=== PATIENT | male | born 1980 | race African-American/Black ===

== ENCOUNTER 2021-03-02 07:35 | Emergency (ER) | payer SELFPAY ==
[~2021-03-02] VITALS: Ht 177.8 cm; Wt 68.0 kg
[2021-03-02] MEDS ORDERED: OLANZAPINE 5MG TABLET ODT PO ONE (08:00)
[2021-03-02 08:28] LABS: BASOPHILS % 0.5 % (0.0-2.0); EOSINOPHILS % 0.2 % (0.0-5.0); HEMATOCRIT. 42.8 % (42.0-52.0); HEMOGLOBIN. 14.9 g/dL (14.0-18.0); LYMPHOCYTES % 10.9 % (20.0-50.0); MEAN CORPUSCULAR VOLUME 89.3 fL (80.0-94.0); MONOCYTES % 6.2 % (2.0-8.0); NEUTROPHILS % 82.2 % (40.0-76.0); PLATELET 499 x1000/uL (130-400); RED BLOOD CELL COUNT 4.79 mill/uL (4.7-6.1); RED CELL DISTRIBUTION WIDTH 13.4 % (11.6-14.6)
[2021-03-02] MEDS ORDERED: DIPHENHYDRAMINE 50MG/ML VIAL IM STA (08:29)
[2021-03-02] MEDS ORDERED: LORAZEPAM 2MG/ML CPJ IM STA (08:29)
[2021-03-02] MEDS ORDERED: HALOPERIDOL LACTATE 5MG/ML VIAL IM ONE (08:30)
[2021-03-02 08:33] LABS: CHLORIDE 105 mEq/L (98-107)
[2021-03-02 08:39] LABS: ETHANOL BLOOD < 10 mg/dL
[2021-03-02 11:10] LABS: CLARITY URINE CLOUDY (CLEAR); COLOR URINE YELLOW (YELLOW); KETONES URINE TRACE (NEGATIVE); LEUKOCYTE ESTERASE URINE NEGATIVE (NEGATIVE); NITRITE URINE NEGATIVE (NEGATIVE); OCCULT BLOOD URINE NEGATIVE (NEGATIVE); PH URINE 7.5 (4.5-8.0); PROTEIN URINE 1+ (NEGATIVE); SPECIFIC GRAVITY URINE 1.021 (1.005-1.030)
[2021-03-02 12:11] LABS: *AMPHETAMINES SCREEN URINE PRESUMTIVE POSITIVE (NEGATIVE); *BARBITURATES SCREEN URINE NEGATIVE (NEGATIVE); CANNABINOID URINE SCREEN NEGATIVE (NEGATIVE); PHENCYCLIDINE URINE SCREEN NEGATIVE (NEGATIVE)
[2021-03-02 12:12] LABS: *BENZODIAZEPINES SCREEN URINE NEGATIVE (NEGATIVE)
[2021-03-02 12:13] LABS: *COCAINE SCREEN URINE NEGATIVE (NEGATIVE); METHADONE URINE SCREEN NEGATIVE (NEGATIVE); OPIATES URINE SCREEN NEGATIVE (NEGATIVE)
[2021-03-03 11:03] VITALS: BP 116/93
== END 2021-03-03 11:06 | disposition home or self-care (01) ==
LOC: ER 07:35 → EDBD 07:35 → ER 03-03 11:06
DX: F23 Brief psychotic disorder (principal); F15.10 Other stimulant abuse, uncomplicated
CPT/HCPCS: 36415; 70450; 80053; 80305; 80307; 80320; 80329; 81003; 85025; 96372; 99285; J1630; Z7610; G0480